=== PATIENT | female | born 1995 | race Caucasian/White ===

== ENCOUNTER 2016-12-15 00:21 | Emergency (ER) | payer BC ==
[~2016-12-15] VITALS: Ht 149.9 cm; Wt 96.0 kg
[~2016-12-15 00:21] MED LIST: ADVIN25/60 INH; ALBU1AER9 INH; BCPILLS PO; CETI10TA84 PO; MONT1TAB3 PO; PRED20TA2 PO
[2016-12-15 00:23] VITALS: TEMP 36.5; Ht 149.9 cm; Wt 96.0 kg
[2016-12-15] MEDS ORDERED: ALBUT/IPRATROP 3MG/0.5MG NEB 3 ML VIAL ONE ×2 (00:27→00:40)
[2016-12-15] MEDS ORDERED: ALBUT/IPRATROP 3MG/0.5MG NEB 3 ML VIAL INH STA (00:41)
[2016-12-15] MEDS ORDERED: SODIUM CHLORIDE 0.9% 1000ML 1,000 ML IV STA (01:22)
[2016-12-15 01:29] VITALS: O2SAT 90
[2016-12-15] MEDS ORDERED: ALBUT/IPRATROP 3MG/0.5MG NEB 3 ML VIAL INH ONE (01:30)
[2016-12-15 01:51] LABS: BASO % 0.1 %; BASO ABS # 0.01 K/uL (0-0.2); COMPLETE YES; EOS % 2.1 %; HEMATOCRIT 38.2 % (37-47); IG% 0.2 %; LYMPH % 44.6 %; LYMPH ABS # 4.67 K/uL (1.2-3.4); MEAN CELL VOLUME 81.3 fL (80-100); MEAN CORPUSCULAR HEMOGLOBIN 27.4 pg (25-34); MEAN CORPUSCULAR HGB CONC 33.8 g/dl (32-36); MEAN PLATELET VOLUME 10.4 fL (7.4-10.4); MONO % 5.4 %; NEUT % 47.6 %; PLATELET COUNT 232 K/uL (130-400); WHITE BLOOD COUNT 10.47 K/uL (4.8-10.8)
[2016-12-15] MEDS ORDERED: ALBU18002 PO (02:06)
[2016-12-15 02:08] LABS: ALT/SGPT 18 U/L (12-78); AST/SGOT 11 U/L (15-37); BLOOD UREA NITROGEN 9 mg/dl (7-18); BUN/CREATININE RATIO 15.4 (10-20); CALCIUM 8.3 mg/dl (8.5-10.1); CARBON DIOXIDE 23 mmol/L (21-32); CHLORIDE 107 mmol/L (98-107); CREATININE 0.56 mg/dl (0.60-1.20); GLUCOSE 94 mg/dl (70-99); POTASSIUM 2.9 mmol/L (3.5-5.1); SODIUM 142 mmol/L (136-145)
[2016-12-15 02:11] LABS: ALKALINE PHOSPHATASE 75 U/L (45-117)
[2016-12-15 02:14] LABS: PREG INTERNAL NEGATIVE QC NEG CLEAR BACKGROUND; PREG INTERNAL POSITIVE QC POS CONTROL LINE
[2016-12-15] MEDS ORDERED: POTASSIUM CHLORIDE 10 MEQ TABCR PO STA (02:16)
[2016-12-15] MEDS ORDERED: METH4PAK PO (02:57)
[2016-12-15 03:42] VITALS: BP 116/65; PULSE 88; O2SAT 100
--- NOTE | 2016-12-15 07:23 | DIAGNOSTIC IMAGING REPORT ---
CHEST ONE VIEW PORTABLE HISTORY: Short of breath. COMPARISON: Chest 08/17/2016. FINDINGS: Low lung volumes. No focal lung consolidations. No evidence for pulmonary edema. No pleural effusions. No pneumothorax. The heart is top normal in size. IMPRESSION: Low lung volumes. Otherwise, no acute process within the chest. Electronically signed by: Harjinder Jin M.D. 12/15/2016 7:22 AM Dictated Date/Time: 12/15/2016 7:21 AM
--- NOTE | 2016-12-15 15:40 | EMERGENCY ROOM VISIT NOTE ---
History Report prepared by Svetlana: Cora Shin Under the Supervision of: Dr. Adilson Colby D.O. First contact with patient: 00:33 Chief Complaint: RESPIRATORY PROBLEMS Stated Complaint: ASTHMA Nursing Triage Summary: patient reports difficulty breathing that feels like an asthma attack. pt has history of asthma History of Present Illness The patient is a 21 year old female who presents to the Emergency Room with complaints of worsening respiratory distress with onset this evening. She rates her discomfort as a 5/10. The patient has a history of asthma. The patient states that [place] when she started to feel as if she was having an asthma attack. She has a cough. The patient took an emergency dose of prednisone. She denies fevers, chills, swelling in her legs, chance of , a history of smoking. Additionally, two years ago, the patient was intubated for an asthma attack. Source of History: patient Onset: this evening Position: chest Symptom Intensity: 5/10 Quality: other (respiratory distress ) Timing: worsening Associated Symptoms: + cough, No chills, No fevers Review of Systems See HPI for pertinent positives & negatives. A total of 10 systems reviewed and were otherwise negative. Past Medical & Surgical Medical Problems: (1) Asthma, Unspecified (2) Gastroenteritis Surgical Problems: (1) No significant past surgical history Family History FH: cancer Social History Smoking Status: Never Smoker Alcohol Use: none Drug Use: none Marital Status: single Occupation Status: [employer] student Current/Historical Medications Scheduled Control Pills ( Control Pills), 1 TAB PO DAILY Cetirizine (Zyrtec), 10 MG PO DAILY Fluticasone Prop/Salmeterol (Advair Diskus 250/50 60 Dose), 1 PUFF INH BID Methylprednisolone (Medrol Dosepak), 0 PO DAILY Montelukast Sodium (Singulair), 10 MG PO DAILY Scheduled PRN Albuterol Sulfate (Proair Respiclick), 2 PUFFS PO Q4 PRN for SOB/Wheezing Allergies Coded Allergies: Cat Dander (Verified Allergy, Unknown, SHORTNESS OF BREATH, 12/15/16) Physical Exam Vital Signs Date Time Temp Pulse Resp B/P Pulse Ox O2 Delivery O2 Flow Rate FiO2 12/15/16 03:42 88 20 116/65 100 Room Air 12/15/16 02:14 92 18 126/67 100 Nebulizer 12/15/16 01:29 90 Room Air 12/15/16 01:29 90 Room Air 12/15/16 00:36 80 12/15/16 00:32 94 Room Air 12/15/16 00:23 36.5 77 18 121/67 98 Room Air Physical Exam GENERAL: Patient is awake and somewhat anxious appearing. EYES: The conjunctivae are clear. The pupils are round and reactive. EARS, NOSE, MOUTH AND THROAT: The nose is without any evidence of any deformity. Mucous membranes are moist tongue is midline NECK: The neck is nontender and supple. RESPIRATORY: Poor inspiratory effort was noted, there was expiratory wheezing noted in all lung perez, diminished breath sounds were noted to both bases, mild conversational dyspnea was noted. CARDIOVASCULAR: Regular rate and rhythm noted there no murmurs rubs or gallops normal S1 normal S2 GASTROINTESTINAL: The abdomen is soft. Bowel sounds are present in all quadrants. Abdomen is nontender PELVIS: The Pelvis is stable. No tenderness to palpation is noted. BACK: No midline tenderness or or step-off noted range of motion in flexion extension as well as rotation no signs of muscle spasm noted MUSCULOSKELETAL/EXTREMITIES: There is no evidence of gross deformity full range of motion is noted in the hips and shoulders SKIN: There is no obvious evidence of any rash. There are no petechiae, pallor or cyanosis noted. NEUROLOGIC: Patient is awake alert and oriented x3 strength is symmetric patellar reflexes are 2+ bilaterally Medical Decision & Procedures ER Provider Diagnostic Interpretation: X-ray results as stated below per interpretation by me. Hypoventilatory study: Low lung volumes, no infiltrate, no definite free air, no acute disease. Laboratory Results 12/15/16 01:30 Red Blood Count 4.70, Mean Corpuscular Volume 81.3, Mean Corpuscular Hemoglobin 27.4, Mean Corpuscular Hemoglobin Concent 33.8, Mean Platelet Volume 10.4, Neutrophils (%) (Auto) 47.6, Lymphocytes (%) (Auto) 44.6, Monocytes (%) (Auto) 5.4, Eosinophils (%) (Auto) 2.1, Basophils (%) (Auto) 0.1, Neutrophils # (Auto) 4.98, Lymphocytes # (Auto) 4.67, Monocytes # (Auto) 0.57, Eosinophils # (Auto) 0.22, Basophils # (Auto) 0.01 12/15/16 01:30 Test 12/15/16 01:30 White Blood Count 10.47 K/uL (4.8-10.8) Red Blood Count 4.70 M/uL (4.2-5.4) Hemoglobin 12.9 g/dL (12.0-16.0) Hematocrit 38.2 % (37-47) Mean Corpuscular Volume 81.3 fL (80-100) Mean Corpuscular Hemoglobin 27.4 pg (25-34) Mean Corpuscular Hemoglobin Concent 33.8 g/dl (32-36) Platelet Count 232 K/uL (130-400) Mean Platelet Volume 10.4 fL (7.4-10.4) Neutrophils (%) (Auto) 47.6 % Lymphocytes (%) (Auto) 44.6 % Monocytes (%) (Auto) 5.4 % Eosinophils (%) (Auto) 2.1 % Basophils (%) (Auto) 0.1 % Neutrophils # (Auto) 4.98 K/uL (1.4-6.5) Lymphocytes # (Auto) 4.67 K/uL (1.2-3.4) Monocytes # (Auto) 0.57 K/uL (0.11-0.59) Eosinophils # (Auto) 0.22 K/uL (0-0.5) Basophils # (Auto) 0.01 K/uL (0-0.2) RDW Standard Deviation 40.3 fL (36.4-46.3) RDW Coefficient of Variation 13.4 % (11.5-14.5) Immature Granulocyte % (Auto) 0.2 % Immature Granulocyte # (Auto) 0.02 K/uL (0.00-0.02) Anion Gap 12.0 mmol/L (3-11) Est Creatinine Clear Calc Drug Dose 161.4 ml/min Estimated GFR () > 150.0 Estimated GFR (Non- 133.3 BUN/Creatinine Ratio 15.4 (10-20) Calcium Level 8.3 mg/dl (8.5-10.1) Total Bilirubin 0.2 mg/dl (0.2-1) Aspartate Amino Transf (AST/SGOT) 11 U/L (15-37) Alanine Aminotransferase (ALT/SGPT) 18 U/L (12-78) Alkaline Phosphatase 75 U/L (45-117) Total Protein 6.7 gm/dl (6.4-8.2) Albumin 3.3 gm/dl (3.4-5.0) Globulin 3.4 gm/dl (2.5-4.0) Albumin/Globulin Ratio 1.0 (0.9-2) Human Chorionic Gonadotropin, Qual NEG (NEG) Laboratory results per my review. Medications Administered Medications (Trade) Dose Ordered Sig/Etta Route Start Time Stop Time Status Last Admin Dose Admin Albuterol/ Ipratropium (Duoneb) 3 ml STK-MED ONCE .ROUTE 12/15/16 00:27 12/15/16 00:29 DC 12/15/16 00:27 3 ML Prednisone (PredniSONE TAB) 40 mg NOW STAT PO 12/15/16 00:36 12/15/16 00:37 DC 12/15/16 00:36 40 MG Albuterol/ Ipratropium 3 ml 3 ml NOW STAT INH 12/15/16 00:41 12/15/16 00:42 DC 12/15/16 00:41 3 ML Sodium Chloride (Nss 1000ml) 1,000 ml @ 999 mls/hr Q1H1M STAT IV 12/15/16 01:22 12/15/16 02:22 DC 12/15/16 01:22 999 MLS/HR Albuterol/ Ipratropium (Duoneb) 12 ml ONE ONCE INH 12/15/16 01:30 12/15/16 01:31 DC 12/15/16 01:40 12 ML Potassium Chloride (Klor-Con M10) 20 meq NOW STAT PO 12/15/16 02:16 12/15/16 02:17 DC 12/15/16 02:16 20 MEQ ED Course 0036: The patient was evaluated in room B10. A complete history and physical examination were performed. 0027: Duoneb 3 ml INH 0036: Prednisone 40 mg PO 0041: Duoneb 3 ml INH 0122: NSS 1,000 ml @ 999 mls/hr IV 0130: Duoneb 12 ml INH 0205: I reevaluated the patient; she is feeling better. 0216: Potassium Chloride 20 meq PO 0253: I reevaluated the patient. She is feeling much better. I discussed the results and treatment plan with the patient. She verbalized agreement of the treatment plan. The patient was discharged home. Medical Decision Differential diagnosis: Etiologies such as infections, reactive airway disease, pneumonia, pneumothorax , COPD, CHF, cardiac ischemia, pulmonary embolism, musculoskeletal, gastrointestinal, as well as others were entertained. Nursing notes reviewed. The patient is a 21-year-old female who presented to the emergency department for shortness of breath. The patient appeared to be having a significant asthma exacerbation. She was treated with IV fluids IV steroids and bronchodilator therapy. She was reevaluated multiple times. Initially she did not improve very well and started having episodes of hypoxia. I discussed the patient's laboratory and radiographic studies with her. I encouraged her to stay in the emergency Department further for an evaluation by the hospitalist for further inpatient management of this condition but she did not wish to stay in the hospital any further and wished to be discharged home. Certainly on my final reevaluation the patient appeared significantly improved. She did not have hypoxia or dyspnea on exertion. I do feel that she may do well as an outpatient but she was encouraged to rest and avoid any strenuous activity. She was also encouraged to continue all medications as prescribed and follow-up with her family doctor soon as possible. Otherwise she was encouraged to return to the emergency Department immediately if symptoms change worsen or the need arises. Impression Primary Impression: Asthma exacerbation Additional Impression: Hypokalemia Scribe Attestation The scribe's documentation has been prepared under my direction and personally reviewed by me in its entirety. I confirm that the note above accurately reflects all work, treatment, procedures, and medical decision making performed by me. Departure Information Dispostion Home / Self-Care Prescriptions Methylprednisolone (MEDROL DOSEPAK) 4 Mg Esteban 0 PO DAILY, #1 PKT Prov: Adilson Colby, DO 12/15/16 Referrals No Doctor, Assigned (PCP) Forms HOME CARE DOCUMENTATION FORM, IMPORTANT VISIT INFORMATION, WORK / SCHOOL INSTRUCTIONS Patient Instructions Asthma Dc, Asthma Meds, My [facility] Additional Instructions Rest and avoid any strenuous activity. Continue all medications as prescribed. Follow-up with [facility] this week. Return to the emergency department immediately if symptoms change worsen or if the need arises. Problem Qualifiers
== END 2016-12-15 03:48 | disposition home or self-care (01) ==
LOC: C.EDB 00:22
DX: J45.901 Unspecified asthma with (acute) exacerbation (principal); E87.6 Hypokalemia